=== PATIENT | female | born 1985 | race Caucasian/White ===

== ENCOUNTER 2018-12-29 19:54 | Emergency (ER) | payer MEDICAID, SELFPAY ==
[2018-12-29 19:55] VITALS: BP 130/75; PULSE 91; RESP 18; TEMP 36.8; O2SAT 98
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
--- NOTE | 2018-12-29 20:17 | NUR.NOTE ---
Nursing Note: C-collar removed by Dr. Oliveira.
[2018-12-29] MEDS: Ibuprofen 600 MG TAB PO (20:46)
[2018-12-29 20:52] VITALS: BP 136/84; PULSE 88; RESP 18; TEMP 36.8; O2SAT 98
== END 2018-12-29 20:53 | disposition home or self-care (01) ==
LOC: ER 21:00
PROVIDERS: Emergency Provider Emergency Medicine; PCP Family Medicine
DX: S16.1XXA Strain of muscle, fascia and tendon at neck level, initial encounter (principal); S29.012A Strain of muscle and tendon of back wall of thorax, initial encounter; Y04.0XXA Assault by unarmed brawl or fight, initial encounter
CPT/HCPCS: 99282

== ENCOUNTER 2019-08-15 21:53 | Emergency (ER) | payer MEDICAID, SELFPAY ==
[2019-08-15 22:16] VITALS: BP 135/71; PULSE 99; RESP 20; TEMP 37.1; O2SAT 98
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
--- NOTE | 2019-08-15 23:10 | DI.RAD_ITS ---
EXAM: XR CHEST 2V PA LATERAL CLINICAL HISTORY: cough r/o pneumonia TECHNIQUE: 2D digital imaging was performed. COMPARISON: No exams were available for comparison FINDINGS: The cardiac and mediastinal contours have a normal appearance. The lungs are well inflated and clear . No infiltrate, effusion or pneumothorax is seen. No spine or rib fracture is identified. IMPRESSION: Negative chest x-ray.
--- NOTE | 2019-08-16 00:26 | DI.VRAD_ITS ---
PROCEDURE INFORMATION: Exam: XR Chest, 2 Views Exam date and time: 08/15/2019 11:11 PM Age: 34 years old Clinical indication: Cough and shortness of breath; Patient HX: Cough for 3 days, SOB, R/O pneumonia TECHNIQUE: Imaging protocol: XR of the chest Views: 2 views. COMPARISON: No relevant prior studies available. FINDINGS: Lungs: Unremarkable. No consolidation. Pleural space: Unremarkable. No pleural effusion. No pneumothorax. Heart/Mediastinum: Unremarkable. No cardiomegaly. Bones/joints: Unremarkable. IMPRESSION: No acute findings. Dictated and Authenticated by: Abbey Moser MD. Ordering:MELL Payne MD
[2019-08-16 00:48] VITALS: BP 135/71; PULSE 99; RESP 20; TEMP 37.1; O2SAT 98
== END 2019-08-16 01:00 | disposition home or self-care (01) ==
PROVIDERS: Emergency Provider Emergency Medicine; PCP Family Medicine
DX: J11.1 Influenza due to unidentified influenza virus with other respiratory manifestations (principal); R11.0 Nausea; R51 Headache; R09.81 Nasal congestion; R09.89 Other specified symptoms and signs involving the circulatory and respiratory systems
CPT/HCPCS: 87449; 99283; 71046

== ENCOUNTER 2021-08-03 10:56 | Emergency (ER) | payer MEDICAID, SELFPAY ==
[2021-08-03] VITALS (11 sets, daily range): BP systolic 113–129; BP diastolic 63–73; PULSE 57–78; RESP 16; TEMP 37.1–37.2; O2SAT 99–100
[2021-08-03 11:34] LABS: Bilirubin Negative (Negative); Blood Trace-intact (Negative); Clarity Clear (Clear); Glucose Negative (Negative); Ketones Negative (Negative); Leukocyte Esterase Trace (Negative); Nitrite Negative (Negative); Specific Gravity >= 1.030 (1.005-1.025); Urobilinogen 0.2 EU/dL (Up TO 0.2); pH 6.5 (5-8)
--- NOTE | 2021-08-03 11:51 | ED.GENADUL_ITS ---
Discharge Plan Disposition Patient Disposition: HOME Condition: Stable Discharge Details Clinical Impression: Back pain Primary Care Provider: Kimberly Hernandez ED Provider: Pramod Roblero Home Meds and New Rx's Prescriptions: Continued cholecalciferol (vitamin D3) [Vitamin D3] 2,000 unit Tablet 2,000 unit PO DAILY RF: 0 fluoxetine 10 mg capsule 10 mg PO DAILY RF: 0 multivitamin Tablet 1 tab PO DAILY RF: 0 Discharge Instructions Instructions: Back Pain (ED) Additional Instructions: Your evaluation in the ER does not reveal any obvious emergent process. You do have a stone in your right kidney but it is not traveling downwards yet. [id number] Tylenol and/or Motrin as directed for discomfort. Cool and/or warm compresses every 2 hours for 20 minutes. Gentle stretching as tolerated. Please watch for new or worsening symptoms and return to the ER for any concerns. Otherwise please contact your primary care provider tomorrow to discuss your ER visit and need for outpatient reevaluation. Discharge Data Discharge Date/Time-TO BE ENTERED AT DEPARTURE: 08/03/21 14:45 Medical Decision Making 36-year-old female, reports past medical history of kidney stones, states that her let her sleep an extra yesterday morning, woke up with a stiff back and throughout the day the pain got worse. She did take a single dose of ibuprofen which has not helped with her discomfort. Reports that the pain is worse with movement wraps around bilateral flank but not to her abdomen, down her legs, denies fever, nausea, vomiting, dysuria, hematuria, vaginal discharge or bleeding, diarrhea or constipation. Clinically this appears to be more musculoskeletal, worse with movement, reproducible. Given her history of kidney stones, the fact this radiates to her flank, I do believe obtaining routine la boratory values is reasonable as well as a renal colic CT we will also provide 1 dose of IV Toradol and Norflex. Initial urinalysis appears contaminated, requesting a second. CBC reveals no leukocytosis or anemia. Platelet count normal renal function and electrolytes are unremarkable. Lipase 60. Repeat urinalysis reveals trace intact blood but negative nitrate, negative leuk esterase, 0-2 red cells, 3-5 white cells Patient requests lunch, able to tolerate p.o. intake without difficulty. Clinically she appears well, nontoxic. Reports pain is improving with the Toradol and Norflex but not gone completely. We discussed her CT findings as well as her laboratory values. No clear emergent process identified. Likely musculoskeletal and will treat as such. Strict discharge and return precautions provided This documentation was generated using [employer] dictation system, please disregard any oddities of phrase or misspellings. Medical Records Medical records reviewed: Yes I reviewed the patient's medical records. Imaging Data Radiologic Study: Attestation: I personally reviewed and interpreted this imaging study as follows: Imaging: CT Scan Radiologist's impression: PROCEDURE INFORMATION: Exam: CT Abdomen And Pelvis Without Contrast Exam date and time: 08/03/2021 11:47 AM Age: 36 years old Clinical indication: Other: Bilat flank pain; Additional info: HX stones TECHNIQUE: Imaging protocol: Computed tomography of the abdomen and pelvis without contrast. Radiation optimization: All CT scans at this facility use at least one of these dose optimization techniques: automated exposure control; mA and/or kV adjustment per patient size (includes targeted exams where dose is matched to clinical indication); or iterative reconstruc tion. COMPARISON: CT ABD PELVIS WITH CONTRAST 07/22/2016 11:47 AM FINDINGS: Lungs: The lung bases are clear Liver: The liver is prominent in size approximately 19 cm in length. There is fatty infiltration. No focal intrahepatic abnormality is identified. Gallbladder and bile ducts: Prior cholecystectomy. No biliary ductal dilatation Pancreas: Pancreas is unremarkable Spleen: Spleen is unremarkable Adrenal glands: Adrenals are unremarkable Kidneys and ureters: There is a nonobstructing calculus noted at the upper pole of the right kidney. It measures approximately 7 mm in maximum diameter as measured on sagittal reformatted image 78, series 5. No other radiopaque renal or ureteral calculi are visualized. There is no evidence of hydronephrosis. There is no evidence of a discrete renal cortical mass. No perinephric inflammation is identified. Stomach and bowel: Non-opacified loops of bowel are unremarkable. There is no evidence of bowel obstruction. There is no discrete mass or pneumatosis. Appendix: No evidence of acute appendicitis DAVID SALMERON Preliminary Radiology Report HEM INSPECTOR (QA) DISCREPANCY? If there is a discrepancy between the preliminary and final interpretation, please notify [facility] via [email or web address]. If you do not have access to our QA portal, call our QA team at [phone] CONFIDENTIALITY STATEMENT This report is intended only for the use of the referring physician, and only in accordance with law, If you received this in error, call [phone] Page 2 of 2 Intraperitoneal space: No free fluid focal collections or free intraperitoneal air is identified. Vasculature: Unremar the kable. No abdominal aortic aneurysm. Lymph nodes: No significant adenopathy Urinary bladder: Bladder is unchanged. Probable small urachal remnant also previously identified. Reproductive: The uterus is retroverted. There is no significant adnexal abnormality Bones/joints: No new or acute bony abnormality is identified. There is a small Schmorl's node involving the superior endplate of L3. Soft tissues: There is a small fat containing ventral umbilical hernia. Subcutaneous soft tissues are otherwise unremarkable. IMPRESSION: 1. Nonobstructing calculus upper pole of right kidney. No evidence of hydronephrosis. Clearing of calculus previously seen at the right ureteral vesicular junction. 2. Hepatomegaly. Fatty liver. Thank you for allowing us to participate in the care of your patient. Lab Data Lab results reviewed: Yes I reviewed the patient's lab results. Labs: Laboratory Tests Range/Units 08/03/21 08/03/21 08/03/21 11:25 11:55 11:55 WBC (4.4-10.8) 10^3/uL 8.99 RBC (3.93-5.22) 10^6/uL 4.27 Hgb (11.2-15.7) g/dL 13.3 Hct (36.0-46.0) % 40.1 MCV (80-95) fL 93.9 MCH (27.0-33.0) pg 31.1 MCHC (32.0-36.0) % 33.2 RDW (11.7-14.6) % 11.9 Plt Count (130-400) 10^3/uL 318 MPV (8.0-11.0) fL 8.4 Immature Gran % 0.3 Neutrophils % 65.5 Lymphocytes % 27.5 Monocytes % 5.5 Eosinophils % 0.9 Basophils % 0.3 Nucleated RBC % % 0 Absolute Neutrophils (1.2-6.7) 10^3/uL 5.89 Absolute Lymphocytes (1.2-3.4) 10^3/uL 2.47 Absolute Monocytes (0.1-0.8) 10^3/uL 0.49 Absolute Eosinophils (0.0-0.7) 10^3/uL 0.08 Absolute Basophils (0.0-0.2) 10^3/uL 0.03 Sodium (136-145) mmol/L 137 Potassium (3.5-5.1) mmol/L 4.4 Chloride (98-107) mmol/L 104 Carbon Dioxide (21.0-32.0) mmol/L 26.7 Anion Gap (3-11) mmol/L 6.3 BUN (7-18) mg/dL 7 Creatinine (0.55-1.02) mg/dL 0.6 Estimated GFR/1.73 m2 (mL/min/1.73m2) >= 60.00 Glucose (74-106) mg/dL 89 Calcium (8.5-10.1) mg/dL 8.5 Total Bilirubin (0.2-1.0) mg/dL 0.3 AST (15-37) U/L 28 ALT (14-59) U/L 39 Alkaline Phosphatase (46-116) U/L 121 H Total Protein (6.4-8.2) g/dL 7.7 Albumin (3.4-5.0) g/dL 3.7 Lipase (73-393) U/L 60 Urine Color (Yellow) Yellow Urine Clarity (Clear) Clear Urine pH (5-8) 6.5 Ur Specific [place] (1.005-1.025) >= 1.030 H Urine Protein (Negative) mg/dL Negative Urine Ketones (Negative) mg/dL Negative Urine Blood (Negative) Trace-intact H Urine Nitrite (Negative) Negative Urine Bilirubin (Negative) Negative Urine Urobilinogen (Up TO 0.2) EU/dL 0.2 Ur Leukocyte Esterase (Negative) Trace H Urine RBC (0-2) HPF 5-10 H Urine WBC (0-5) HPF 20-50 H Ur Epithelial Cells (Negative) HPF Moderate Urine Crystals (Negative) HPF Negative Urine Bacteria (Negative) HPF Moderate Urine Casts (Negative) LPF Negative Urine Mucus (Negative) Trace Ur Culture Indicated? No/Sq. Contamination Urine Glucose (Negative) mg/dL Negative Range/Units 08/03/21 13:40 WBC (4.4-10.8) 10^3/uL RBC (3.93-5.22) 10^6/uL Hgb (11.2-15.7) g/dL Hct (36.0-46.0) % MCV (80-95) fL MCH (27.0-33.0) pg MCHC (32.0-36.0) % RDW (11.7-14.6) % Plt Count (130-400) 10^3/uL MPV (8.0-11.0) fL Immature Gran % Neutrophils % Lymphocytes % Monocytes % Eosinophils % Basophils % Nucleated RBC % % Absolute Neutrophils (1.2-6.7) 10^3/uL Absolute Lymphocytes (1.2-3.4) 10^3/uL Absolute Monocytes (0.1-0.8) 10^3/uL Absolute Eosinophils (0.0-0.7) 10^3/uL Absolute Basophils (0.0-0.2) 10^3/uL Sodium (136-145) mmol/L Potassium (3.5-5.1) mmol/L Chloride (98-107) mmol/L Carbon Dioxide (21.0-32.0) mmol/L Anion Gap (3-11) mmol/L BUN (7-18) mg/dL Creatinine (0.55-1.02) mg/dL Estimated GFR/1.73 m2 (mL/min/1.73m2) Glucose (74-106) mg/dL Calcium (8.5-10.1) mg/dL Total Bilirubin (0.2-1.0) mg/dL AST (15-37) U/L ALT (14-59) U/L Alkaline Phosphatase (46-116) U/L Total Protein (6.4-8.2) g/dL Albumin (3.4-5.0) g/dL Lipase (73-393) U/L Urine Color (Yellow) Yellow Urine Clarity (Clear) Clear Urine pH (5-8) 6.0 Ur Specific [place] (1.005-1.025) 1.020 Urine Protein (Negative) mg/dL Negative Urine Ketones (Negative) mg/dL Negative Urine Blood (Negative) Trace-intact H Urine Nitrite (Negative) Negative Urine Bilirubin (Negative) Negative Urine Urobilinogen (Up TO 0.2) EU/dL 0.2 Ur Leukocyte Esterase (Negative) Negative Urine RBC (0-2) HPF 0-2 Urine WBC (0-5) HPF 3-5 Ur Epithelial Cells (Negative) HPF Moderate Urine Crystals (Negative) HPF Negative Urine Bacteria (Negative) HPF Few Urine Casts (Negative) LPF Negative Urine Mucus (Negative) Negative Ur Culture Indicated? No Urine Glucose (Negative) mg/dL Negative HPI General Mode of arrival: ambulatory . Date/Time Provider Initiated Documentation: 08/03/21 10:57 . Limitations to Documentation: no limitations . Information obtained by: patient . History of Present Illness 36 year old F presents to the emergency department with the chief complaint of Back pain, described as moderate, with intensity rated at 5. Quality is described as aching, and is localized to the back. Patient flank (Bilateral). Patient started experiencing this day(s) (1) and it has been constant. No relieving factors improve symptom(s), Movement worsens symptoms . Patient notes no other symptoms.. Patient did receive the following treatments prior to arrival, NSAID Related Data Home Medications Medication Instructions Recorded Confirmed cholecalciferol (vitamin D3) 2,000 unit PO DAILY 08/15/19 08/03/21 [Vitamin D3] fluoxetine 10 mg PO DAILY 08/03/21 08/03/21 multivitamin 1 tab PO DAILY 08/03/21 08/03/21 Allergies Allergy/AdvReac Type Severity Reaction Status Date / Time oxycodone [From Percocet] Allergy Intermediate Itching Unverified 08/03/21 11:47 adhesive tape Allergy Mild redness Verified 08/03/21 11:47 General Stated Complaint: Nk/Back Pain STEFANO: 3 Review of Systems Constitutional Constitutional: Denies fever(s) and Denies weakness Cardiovascular Cardiovascular: Denies chest pain and Denies dyspnea Respiratory Respiratory: Denies cough and Denies dyspnea Gastrointestinal Gastrointestinal: Denies abdominal pain, Denies constipation, Denies diarrhea, Denies nausea and Denies vomiting Genitourinary Genitourinary: Denies hematuria, Denies dysuria and Denies vaginal discharge Musculoskeletal Musculoskeletal: Reports back pain, Denies numbness and Denies tingling Integumentary/Breasts Skin/Breast: Denies rash Neurologic Neurologic: Denies numbness, Denies tingling and Denies weakness PFSH All Active Problems Influenza-like illness (Acute) Back pain (Acute) Right ureteral stone (Acute 07/24/16) Medical History Kidney stones Surgical History S/P cholecystectomy Social History Smoking/Tobacco Use Status: Former Tobacco Use Smoking risk assessment performed?: Yes Alcohol Intake: current Alcohol Intake frequency: holidays/special occasions only Alcohol type: beer Drug use: Never Do you feel safe at home: Yes Do you feel safe in your relationship?: Yes Exam Const General: cooperative, healthy appearing, comfortable and no acute distress Orientation: alert, awake and oriented x3 HENMT Head: normal to inspection, normocephalic and atraumatic Eyes General: appearance normal, both eyes and all related structures Conjunctivae: conjunctivae normal Neck Neck: normal visual inspection, trachea midline and supple Resp Effort & Inspection: normal respiratory effort and able to speak in complete sentences Auscultation: clear to auscultation bilaterally Cardio Rate: regular rate Rhythm: regular rhythm GI Inspection: normal to inspection Palpation: soft, not firm, no guarding, no pulsatile masses and nontender Auscultation: normal bowel sounds Back/Spine/Pelvis Back: no CVA tenderness and back tenderness (Diffuse, mild, lumbar. No midline point tenderness) Skin General skin exam: no rashes or lesions noted Neuro General: patient alert, patient awake, moves all extremities and no focal motor deficits Cognition: normal cognition Gait: normal gait Motor: muscle tone normal throughout and strength 5/5 throughout Sensory Exam: no sensory deficits noted Extrem General: normal to inspection and full ROM Psych Appearance: grossly normal Mental Status: mental status grossly normal Course Vital Signs Vital signs: Vital Signs Pulse Oximetry 99 08/03/21 11:34 Temperature 37.2 C 08/03/21 11:35 Temperature Source Oral 08/03/21 11:35 Pulse 76 08/03/21 11:37 Respiratory Rate 16 08/03/21 11:37 Respiratory Effort 08/03/21 11:07 Blood Pressure 113/66 08/03/21 11:35 Blood Pressure Mean 79 08/03/21 11:35 Pulse Oximetry 99 08/03/21 11:37 Oxygen Delivery Method Room Air 08/03/21 11:37 Oxygen Flow Rate 0 08/03/21 11:37 Pain Level 10 08/03/21 11:41 Lab/Test Results Lab/Test Results: Laboratory Tests Range/Units 08/03/21 11:25 Urine Color (Yellow) Yellow Urine Clarity (Clear) Clear Urine pH (5-8) 6.5 Ur Specific [place] (1.005-1.025) >= 1.030 H Urine Protein (Negative) mg/dL Negative Urine Ketones (Negative) mg/dL Negative Urine Blood (Negative) Trace-intact H Urine Nitrite (Negative) Negative Urine Bilirubin (Negative) Negative Urine Urobilinogen (Up TO 0.2) EU/dL 0.2 Ur Leukocyte Esterase (Negative) Trace H Urine Glucose (Negative) mg/dL Negative POC- Test(urine) Negative
[2021-08-03 11:52] LABS: Epithelial Cells Moderate HPF (Negative); WBC 20-50 HPF (0-5)
[2021-08-03 11:53] LABS: Bacteria Moderate HPF (Negative); C & S Indicated? No/Sq. Contamination; Casts Negative LPF (Negative); Crystals Negative HPF (Negative); Mucus Trace (Negative)
[2021-08-03 12:22] LABS: Abs Immature Grans 0.03 10^3/uL (0.0-0.06); Absolute Basophil Count 0.03 10^3/uL (0.0-0.2); Absolute Eosinophil Count 0.08 10^3/uL (0.0-0.7); Absolute Lymphocyte Count 2.47 10^3/uL (1.2-3.4); Absolute Monocyte Count 0.49 10^3/uL (0.1-0.8); Absolute Neutrophil Count 5.89 10^3/uL (1.2-6.7); Basophils % 0.3; Eosinophils % 0.9; HCT 40.1 % (36.0-46.0); HGB 13.3 g/dL (11.2-15.7); Immature Grans % 0.3; Lymphocytes % 27.5; MCH 31.1 pg (27.0-33.0); MCHC 33.2 % (32.0-36.0); MCV 93.9 fL (80-95); MPV 8.4 fL (8.0-11.0); Monocytes % 5.5; Neutrophils % 65.5; Nucleated RBC 0 %; Platelet Count 318 10^3/uL (130-400); RBC 4.27 10^6/uL (3.93-5.22); RDW 11.9 % (11.7-14.6); RDW-SD 40.8 fL; WBC 8.99 10^3/uL (4.4-10.8)
[2021-08-03] MEDS: Ketorolac 30 MG/ML VIAL IVP (12:36)
[2021-08-03] MEDS: Orphenadrine 60 MG/2 ML VIAL IVP (12:37)
[2021-08-03 12:39] LABS: ALT 39 U/L (14-59); AST 28 U/L (15-37); Albumin 3.7 g/dL (3.4-5.0); Alkaline Phosphatase 121 U/L (46-116); Anion Gap 6.3 mmol/L (3-11); BUN 7 mg/dL (7-18); Bilirubin, Total 0.3 mg/dL (0.2-1.0); CO2 26.7 mmol/L (21.0-32.0); CREATININE 0.6 mg/dL (0.55-1.02); Calcium 8.5 mg/dL (8.5-10.1); Chloride 104 mmol/L (98-107); Glucose 89 mg/dL (74-106); Lipase 60 U/L (73-393); Potassium 4.4 mmol/L (3.5-5.1); Sodium 137 mmol/L (136-145); Total Protein 7.7 g/dL (6.4-8.2)
--- NOTE | 2021-08-03 12:49 | DI.CT_ITS ---
Exam(s) CT ABDOMEN PELVIS WO EXAM: CT ABDOMEN PELVIS WO CLINICAL HISTORY: back/flank pain, hx of renal stone. TECHNIQUE: Imaging Protocol: Axial computed tomography images with coronal and sagittal reformatted images were created and reviewed CONTRAST MATERIAL: Intravenous: none Oral: None COMPARISON: CT ABD PELVIS WITH CONTRAST from 07/22/2016 FINDINGS: VISUALIZED LUNG BASES: No nodules nor pleural effusions evident. ABDOMEN: There is no ascites. LIVER: Liver is hypodense implying steatosis. There are no discrete focal hepatic lesions. GALLBLADDER/BILIARY: The gallbladder is again noted be surgically absent. CBD is not dilated. PANCREAS: No evidence of pancreatic mass nor dilatation of the pancreatic duct. SPLEEN: Spleen is not enlarged. No obvious intrasplenic lesions. ADRENALS: There are no significant adrenal masses. KIDNEYS:Left kidney appears unremarkable. There is a nonobstructive calculus in the right kidney whi ch is similar in location to 2017 but has increased in size, presently measuring 6 millimeter. No ot her calculi seen in the kidneys and ureters. No renal cyst or solid renal masses. No hydronephrosis .. ABDOMINAL AORTA: Abdominal aorta is not enlarged. LYMPH NODES: There is no retroperitoneal nor paraaortic adenopathy. ABDOMINAL WALL: There is a small fat containing umbilical hernia noted. No bowel loops therein. No bowel obstruction GI: There is no evidence of bowel obstruction, free air, nor abscess. PELVIS: LYMPH NODES: No intrapelvic adenopathy. There are small shotty lymph nodes in both inguinal regions, similar to the previous study. GI: No evidence of appendicitis.No evidence of sigmoid diverticulitis. URINARY BLADDER: No calculi nor obvious masses evident REPRODUCTIVE: Uterus size and appearance of the ovaries are age-appropriate. There is no free fluid in the cul-de-sac. OSSEOUS: No significant osseous lesions. Small Schmorl's node invagination in anterosuperior endplate of L3 is unchanged. IMPRESSION: 1. There is a nonobstructive 6 millimeter calculus in the right kidney. No other renal calculi nor h ydronephrosis. Previously present calculus at the right ureterovesical junction seen in 2017 has crystal ared. There are no calculi presently evident in the urinary bladder. 2. Hepatic steatosis and mild hepatomegaly again noted. There are no discrete focal hepatic lesions evident on this noninfused study. There is no splenomegaly. 3. The gallbladder is again noted be surgically absent. The biliary tree is not dilated No ascites evident RADIATION DOSE DELIVERED: 1,186.65mGy.cm Total DLP DATA REPOSITORY: All CT scans at this facility are submitted to the National Radiology Data Registry (NRDR) Dose Index Registry (DIR) with the [employer] (ACR). RADIATION OPTIMIZATION: All CT scans at this facility use at least one of these dose optimization te chniques: automated exposure control; mA and/or kV adjustment per patient size (includes targeted exa ms where dose is matched to clinical indication); or iterative reconstruction.
--- NOTE | 2021-08-03 12:58 | DI.VRAD_ITS ---
PROCEDURE INFORMATION: Exam: CT Abdomen And Pelvis Without Contrast Exam date and time: 08/03/2021 11:47 AM Age: 36 years old Clinical indication: Other: Bilat flank pain; Additional info: HX stones TECHNIQUE: Imaging protocol: Computed tomography of the abdomen and pelvis without contrast. Radiation optimization: All CT scans at this facility use at least one of these dose optimization techniques: automated exposure control; mA and/or kV adjustment per patient size (includes targeted exams where dose is matched to clinical indication); or iterative reconstruction. COMPARISON: CT ABD PELVIS WITH CONTRAST 07/22/2016 11:47 AM FINDINGS: Lungs: The lung bases are clear Liver: The liver is prominent in size approximately 19 cm in length. There is fatty infiltration. No focal intrahepatic abnormality is identified. Gallbladder and bile ducts: Prior cholecystectomy. No biliary ductal dilatation Pancreas: Pancreas is unremarkable Spleen: Spleen is unremarkable Adrenal glands: Adrenals are unremarkable Kidneys and ureters: There is a nonobstructing calculus noted at the upper pole of the right kidney. It measures approximately 7 mm in maximum diameter as measured on sagittal reformatted image 78, series 5. No other radiopaque renal or ureteral calculi are visualized. There is no evidence of hydronephrosis. There is no evidence of a discrete renal cortical mass. No perinephric inflammation is identified. Stomach and bowel: Non-opacified loops of bowel are unremarkable. There is no evidence of bowel obstruction. There is no discrete mass or pneumatosis. Appendix: No evidence of acute appendicitis Intraperitoneal space: No free fluid focal collections or free intraperitoneal air is identified. Vasculature: Unremar the kable. No abdominal aortic aneurysm. Lymph nodes: No significant adenopathy Urinary bladder: Bladder is unchanged. Probable small urachal remnant also previously identified. Reproductive: The uterus is retroverted. There is no significant adnexal abnormality Bones/joints: No new or acute bony abnormality is identified. There is a small Schmorl's node involving the superior endplate of L3. Soft tissues: There is a small fat containing ventral umbilical hernia. Subcutaneous soft tissues are otherwise unremarkable. IMPRESSION: 1. Nonobstructing calculus upper pole of right kidney. No evidence of hydronephrosis. Clearing of calculus previously seen at the right ureteral vesicular junction. 2. Hepatomegaly. Fatty liver. Dictated and Authenticated by: Usha Dimas MD. Ordering:KELLY Benavidez MD
[2021-08-03 13:48] LABS: Bilirubin Negative (Negative); Blood Trace-intact (Negative); Clarity Clear (Clear); Glucose Negative (Negative); Ketones Negative (Negative); Leukocyte Esterase Negative (Negative); Nitrite Negative (Negative); Urobilinogen 0.2 EU/dL (Up TO 0.2)
[2021-08-03 13:55] LABS: RBC 0-2 HPF (0-2)
[2021-08-03 13:56] LABS: Bacteria Few HPF (Negative); C & S Indicated? No; Casts Negative LPF (Negative); Crystals Negative HPF (Negative); Epithelial Cells Moderate HPF (Negative); Mucus Negative (Negative)
== END 2021-08-03 14:45 | disposition home or self-care (01) ==
PROVIDERS: Emergency Provider Physician Assistant; PCP Nurse Practitioner
DX: M54.50 Low back pain, unspecified (principal); N20.0 Calculus of kidney; Z87.442 Personal history of urinary calculi
CPT/HCPCS: 36415; 80053; 81025; 83690; 96374; 96375; 99284; J2360; 74176; 81003; 81015; 85025; 99283; J1885

== ENCOUNTER 2023-11-28 10:12 | Emergency (ER) | payer MEDICAID, SELFPAY ==
[2023-11-28 10:16] VITALS: BP 163/107; PULSE 87; RESP 12; TEMP 36.7; O2SAT 100
--- NOTE | 2023-11-28 10:18 | ED.GENADUL_ITS ---
Discharge Plan Disposition Patient Disposition: Home Discharge Details Clinical Impression: Cat bite of right forearm Primary Care Provider: Emelina Dorman ED Provider: Manav Nesbitt Home Meds and New Rx's Prescriptions: New amoxicillin-pot clavulanate 875-125 mg tablet 1 tab PO BID 7 Days Qty: 14 0RF Continued cholecalciferol (vitamin D3) [Vitamin D3] 2,000 unit Tablet 2,000 unit PO DAILY fluoxetine 10 mg capsule 10 mg PO DAILY Patient Comments: TAKE ONE CAPSULE BY MOUTH EVERY MORNING multivitamin Tablet 1 tab PO DAILY Discharge Instructions Additional Instructions: You are seen in the emergency department for your cat bite. Your x-ray showed no sign of any fractures and no signs of any retained teeth. Please take these antibiotics as directed and please wear this splint while you are awake. Please return to the emergency department if you develop streaking signs of infection fevers or any foul-smelling drainage from your wound. Please also return if your arm becomes more swollen and to cannot move your hand. Otherwise please follow-up with your primary care provider later this week. Discharge Data Discharge Date/Time-TO BE ENTERED AT DEPARTURE: 11/28/23 12:28 HPI General Date/Time Provider Initiated Documentation: 11/28/23 10:18 . HPI Narrative: MDM This is an overall very well-appearing normothermic and not tachycardic [id number] 38-year-old female with 6 puncture wounds from cat on her right distal forearm for which she will receive tetanus immunization, plain films to assess for any retained teeth, and prophylaxis amoxicillin clavulanic acid. No pain out of proportion to suggest necrotizing soft tissue infection. Compartments soft so I am not concerned for compartment syndrome. Patient does have limited range of motion in her left hand secondarily to pain. Left hand warm well-perfused so I am not concerned for vascular injury. Patient and I discussed watching her wound for signs of infection. I specifically mentioned purulent drainage any fevers or any streaking signs of infection. Patient has no risk factors for poor wound healing as she is not a smoker nor diabetic and she is not anticoagulated. Given that the patient will be with her cat I am not suspicious for rabies so I do not feel that the patient requires prophylaxis. I provided the patient with a removable wrist splint to prevent excessive movement and promote wound healing. I did not attempt to irragate patient's puncture wounds in the ED given >12 hours since time of injury and prior irrigation at home by patient last night. Patient understood return indications discharged with empiric trial of expectant outpatient management. X-ray negative for any acute osseous abnormalities and no foreign bodies. HPI This is a [id number] 38-year-old female arrived to the emergency department via private vehicle in the setting of puncture wound she sustained yesterday evening to her distal right forearm from her cat. Patient reports that her cat is generally an indoor cat. She said that her cat got out last night and she was holding her cat as a car passed by. Her cat became markedly agitated and bit her multiple times on her right distal forearm. She is not anticoagulated. She has no history of diabetes. She denies any routine tobacco or alcohol use. Last night she applied bacitracin after hydrogen peroxide and rinsing it with water. She kept it covered overnight. This morning she woke up with worsening pains and swelling. Her cat is named Sandra. Exam General: Well-appearing in no acute distress speaking in complete sentences. Head: Normocephalic, atraumatic. Eye: Extraocular eye movements intact. No conjunctival injection. No scleral icterus. Ear, nose, mouth, throat: Grossly normal inspection. Normal voice, handling secretions normally. Neck: Trachea midline. Cardiovascular: Well-perfused distal extremities. Respiratory: Nonlabored respiration. Gastrointestinal: Nondistended abdomen. Musculoskeletal: On the dorsal surface of the right forearm there are 6 small puncture wounds less than 2 mm each. No active bleeding. No ecchymosis. Mild surrounding swelling. Compartments soft. Right hand warm well-perfused with 2+ right radial pulse. Cap refill less than 2 seconds in the right finger tips. Full range of motion in right elbow. Patient is able to fully pronate and supinate. She does have limitations on her ability to flex and extend at the right wrist secondarily to pain. Sensation and motor function intact in the right hand across the radial, median, and ulnar nerve distributions. Skin: Normal for age and race, grossly normal temperature and turgor. No acute rash. Neurologic: Alert and appropriate, no apparent acute deficits. Psychiatric: Mood and manner are appropriate. Grooming and personal hygiene are appropriate. Related Data Home Medications Medication Instructions Recorded Confirmed cholecalciferol (vitamin D3) 50 2,000 unit PO DAILY 08/15/19 08/03/21 mcg (2,000 unit) tablet (Vitamin D3) fluoxetine 10 mg capsule 10 mg PO DAILY 08/03/21 08/03/21 multivitamin 1 tab PO DAILY 08/03/21 08/03/21 amoxicillin 875 mg-potassium 1 tab PO BID 7 days #14 tabs 11/28/23 clavulanate 125 mg tablet Previous Rx's Medication Instructions Recorded amoxicillin 875 mg-potassium 1 tab PO BID 7 days #14 tabs 11/28/23 clavulanate 125 mg tablet Allergies Allergy/AdvReac Type Severity Reaction Status Date / Time oxycodone [From Percocet] Allergy Intermediate Itching Unverified 08/03/21 11:47 adhesive tape Allergy Mild redness Verified 08/03/21 11:47 General STEFANO: 3 Medical Decision Making Quality:SDOH Health Related Social Needs: No Data to Display PFSH All Active Problems (Updated 11/28/23 @ 11:39 by Manav Nesbitt MD) Cat bite of right forearm (Acute) Influenza-like illness (Acute) Right ureteral stone (Acute 07/24/16) Medical History Kidney stones Surgical History S/P cholecystectomy Social History Smoking/Tobacco Use Status: Former Tobacco Use Smoking risk assessment performed?: Yes Alcohol Intake: current Alcohol Intake frequency: holidays/special occasions only Alcohol type: beer Drug use: Never Do you feel safe at home: Yes Do you feel safe in your relationship?: Yes
--- NOTE | 2023-11-28 10:30 | DI.RAD_ITS ---
Exam(s) XR FOREARM RT EXAM: XR FOREARM RT CLINICAL HISTORY: Distal forearm punctures Cat bite. TECHNIQUE: 2D digital imaging was performed of the left forearm. Two views were obtained. AP and l ateral views were obtained. COMPARISON: No exams were available for comparison FINDINGS: BONES: No acute fracture is present. No bony destructive lesion is seen. Visualized portion of elbow and wrist joints are unremarkable. SOFT TISSUE: Normal. No radiopaque foreign bodies are identified. No soft tissue gas is seen. IMPRESSION: No acute fracture or dislocation. DATA REPOSITORY: RADIATION DOSE DELIVERED:
[2023-11-28] MEDS: Acetaminophen 500 MG TAB 1000 MG PO (10:37)
[2023-11-28] MEDS: Lidocaine/Epinephri/Tetracaine Topical Gel 3 ML (10:37)
[2023-11-28] MEDS: Ibuprofen 600 MG TAB PO (10:37)
--- NOTE | 2023-11-28 10:52 | NUR.NOTE ---
Animal bite report form faxed to [facility] Health Officer; Rashid Reed; for the [facility]. Fax # [phone]. Nursing Note:
--- NOTE | 2023-11-28 12:00 | DI.VRAD_ITS ---
PROCEDURE INFORMATION: Exam: XR Right Forearm Exam date and time: 11/28/2023 10:58 AM Age: 38 years old Clinical indication: Swelling; Arm, lower; Right; Patient HX: Distal forearm punctures cat bite. TECHNIQUE: Imaging protocol: Radiologic exam of the right forearm. Views: 2 views. COMPARISON: No relevant prior studies available. FINDINGS: Bones/joints: No displaced fracture seen. Soft tissues: Possible wrap or bandage soft tissue swelling distal forearm. No metallic foreign body seen. IMPRESSION: No displaced fracture seen. Soft tissue swelling. Dictated and Authenticated by: Jair Valiente MD. Ordering:ANGEL Em MD
[2023-11-28] MEDS: Amoxicillin 875/Clav. 125 TAB PO (12:27)
[2023-11-28 12:28] VITALS: BP 145/86; PULSE 74; RESP 12; TEMP 36.7; O2SAT 100
== END 2023-11-28 12:28 | disposition home or self-care (01) ==
PROVIDERS: Emergency Provider Emergency Medicine; PCP Physician Assistant
DX: S51.831A Puncture wound without foreign body of right forearm, initial encounter (principal); W55.01XA Bitten by cat, initial encounter; Y93.89 Activity, other specified; Y92.018 Other place in single-family (private) house as the place of occurrence of the external cause; Z23 Encounter for immunization
CPT/HCPCS: 90471; 90715; 99283; 73090